=== PATIENT | female | born 1965 | race Caucasian/White ===

== ENCOUNTER 2019-03-18 09:21 | Day surgery (SDC) | payer OTHER ==
[2019-03-18 09:35] LABS: Specific Gravity 1.015 (1.005-1.030)
[2019-03-18 10:05] VITALS: BP 135/73; O2SAT 96
[2019-03-18] MEDS ORDERED: NA CHLORIDE 0.9% 1,000 ML ONE (10:09)
[2019-03-18] MEDS ORDERED: MIDAZOLAM HCL 2 MG/2 ML INJ ONE (11:25)
[2019-03-18] MEDS ORDERED: FENTANYL CITR 100 MCG/2 ML ONE (11:25)
[2019-03-18] MEDS ORDERED: LIDOCAINE 2% MPF 5 ML VIAL ONE (11:25)
[2019-03-18] MEDS ORDERED: PROPOFOL 200 MG/20 ML VIAL IV ONE ×2 (11:25→11:56)
--- NOTE | 2019-03-18 11:28 | EKG ---
Test Date: 2019-03-18 Test Time: 09:14:04 [employer]: [place] MEASUREMENT RESULTS: Intervals: Rate: 71 [place]: 142 QRSD: 86 QT: 406 QTc: 441 [place]: P: 54 [place]: 142 QRS: 66 T: 49 INTERPRETIVE STATEMENTS: Normal sinus rhythm Possible Left atrial enlargement Borderline ECG No previous ECG available for comparison Electronically Signed On 03-18-19 11:27:08 [employer] by Vasile Sheldon
[2019-03-18] MEDS ORDERED: KETOROLAC 30 MG/ML INJ ONE (12:07)
[2019-03-18] MEDS ORDERED: LIDOCAINE 1% W/EPI 1:100,000 MDV 20 ML VIAL ONE (12:18)
[2019-03-18 12:59] VITALS: TEMP 97.9
--- NOTE | 2019-03-18 23:24 | OP ---
Date of Procedure: 03/18/2019 Surgeon: Tequila Cevallos MD Preoperative Diagnoses: Postmenopausal bleeding. Postoperative Diagnoses: Postmenopausal bleeding. Procedure Performed: Hysteroscopy, dilation and curettage. Anesthesia: MAC plus paracervical block. Specimens: Endometrial curettings. Findings: Endometrial lining irregular with possible tumor posterior and right lateral wall. Complications: No complications. Drains: None. Condition: Stable. Indications: The patient is a 53-year-old with postmenopausal bleeding, evaluated in the office, had a uterus about 6-8 weeks size and blood seen in the vaginal wall, so she was consented for endometri al sampling. Ultrasound was ordered as well to rule out adnexal masses and she was brought into the OR. Description Of Procedure: After informed consent was verified, she was taken back to OR, placed in t he supine fashion on the operating table. MAC was given, placed in a dorsal lithotomy position. Pel danita exam performed. Uterus anteflexed 6-8 weeks size. No adnexal masses were palpable. Speculum pl aced to expose the cervix. Anterior lip injected with 1% lidocaine mixed with 1:100,000 epinephrine and 8 mL was injected here, and then 5 mL and 5 mL on each side to a total of 20 mL with whatever was wasted at 4 and 8 o'clock positions were paracervical block. Prep x3 with Betadine was then done. SlimLine diagnostic hysteroscope was used for entry into the cervical canal under direct visualizatio n. Uterine cavity was entered, 30-degree lens, normal saline was used to the scope. 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 The en tire cavity was well visualized. Scope was removed, curettings were performed with a #2 curette, hannah ded out for permanent pathology. Instruments were removed. Instruments, needle, and sponge counts w ere done and were correct at the end of the case. The patient tolerated the procedure well. She sherri l follow up with me for pathology results in 1 week. ROLANDO/JOANNE Voice ID: [id number] Report ID: [id number]
== END 2019-03-18 13:43 | disposition home or self-care (01) ==
LOC: OR 09:21
PROVIDERS: ATTEND Obstetrics & Gynecology
PROC: 0UJD8ZZ Inspection of Uterus and Cervix, Via Natural or Artificial Opening Endoscopic (ICD-10-PCS; 2019-03-18)
PROC: 0UDB7ZX Extraction of Endometrium, Via Natural or Artificial Opening, Diagnostic (ICD-10-PCS; principal; 2019-03-18 10:00)
DX: C54.1 Malignant neoplasm of endometrium (principal); N94.10 Unspecified dyspareunia; L29.2 Pruritus vulvae; E11.65 Type 2 diabetes mellitus with hyperglycemia; I10 Essential (primary) hypertension; E78.00 Pure hypercholesterolemia, unspecified; F41.9 Anxiety disorder, unspecified; F32.9 Major depressive disorder, single episode, unspecified; Z88.0 Allergy status to penicillin; Z88.8 Allergy status to other drugs, medicaments and biological substances
CPT/HCPCS: 93005; 81025; 82947; 88305; 58558; J2704; J2250; J3010; J7030